=== PATIENT | female | born 1995 | race Caucasian/White ===

== ENCOUNTER 2021-09-20 17:23 | Emergency (ER) | payer OTHER, SELFPAY ==
--- NOTE | 2021-09-20 17:30 | ED.ABDPAIN ---
HPI - Abdominal Pain General Chief Complaint: Abdominal Pain Stated Complaint: ABD PAIN Time Seen by Provider: 09/20/21 17:30 Source: patient Mode of arrival: ambulatory Limitations: no limitations History of Present Illness HPI narrative: Ms. Sol is a 26-year-old female patient presenting to the clinic today with complaints of left lower abdominal pain that began approximately 30 minutes prior to arrival. She reports she has had a history of ovarian cyst and this feels as though that is what is happening. She says she is very tender to her left lower abdomen and over her pelvis. Reports possibility of being . She denies any fever or chills but does have nausea associated with her pain. She rates her pain 7 out of 10. States the pain is sharp in nature and does not radiate. Last bowel movement was this morning and it was normal for her. She denies any vaginal discharge or bleeding. Denies any urinary symptoms. She denies any bloating and is passing gas appropriately. Related Data Home Medications Medication Instructions Recorded Confirmed No Home Medications 09/20/21 09/20/21 Allergies Allergy/AdvReac Type Severity Reaction Status Date / Time No Known Allergies Allergy Verified 09/20/21 17:32 Review of Systems Review of Systems: Pertinent positives per HPI. Patient denies any fever, chills, rash, headache, visual changes, dizziness, cough, runny nose, sore throat, shortness of breath, chest pain, palpitations, vomiting, diarrhea, constipation, or any urinary issues. PMFSH Comments At the time of my signature, I reviewed and agree with the nursing past medical, surgical, social, and family history. There is no relevant family history pertinent to the patient complaint. Exam Narrative: General: Well-developed, well nourished, in moderate distress due to pain Head: Normocephalic, atraumatic Cardio: Regular rate and rhythm, s1 and s2 normal, no murmur appreciated. Resp: Clear to auscultation bilaterally, no rhonchi, rales, wheezing or rubs. Abdomen: Soft, pliable, bowel sounds present in all quadrants, exquisite tenderness to palpation over the left and right lower quadrants as well as over the left adnexa, no organomegly, no CVAT tenderness. Course Course Emergency Course: Portions of this record may have been created with voice recognition software. Level of Care: Express Care Visit Vital Signs Vital signs: Vital signs reviewed Transfer Transfered to: [place] Transportation: Other (Private car) Transfer rationale: Left lower quadrant pain rule out ovarian torsion or rupture. Accepting physician: Dr. Kristie Dia Transfer comments: Patient agreed to transfer. Report was called to Dr. Dia at [facility] MDM - Abdominal Pain MDM Narrative Medical decision making narrative: At the time of visit patient is sitting uncomfortably on the exam table. Rates her pain a 7 out of 10 currently. Has left lower abdominal pain with nausea. UA and urine test completed and both were negative. Patient did have 1+ ketones and high specific gravity with her urine. She is exquisitely tender over the in the left and right lower quadrant and over the left adnexa. Recommend evaluation in the emergency room and patient agreed to this. Called and discussed patient's case with Dr. Kristie Dia at [place] and she accepted the patient. Differential Diagnosis Differential diagnosis: Likely abdominal pain, acute appendicitis, calculus of kidney, constipation, diverticulitis, endometriosis, gastroenteritis, pancreatitis and small bowel obstruction Discharge Plan Discharge Clinical Impression: Abdominal pain, left lower quadrant Patient Disposition: Acute Care Hospital Condition: Stable Additional Instructions: You were evaluated by the provider in the Express care today, and it is recommended that you promptly go to the Emergency Room as your illness requires a higher level of care. Prescriptions
[2021-09-20 17:33] VITALS: BP 115/68; PULSE 85; RESP 16; TEMP 36.8; O2SAT 100
== END 2021-09-20 17:56 | disposition short-term general hospital (02) ==
PROVIDERS: Emergency Provider Nurse Practitioner Family
DX: R10.32 Left lower quadrant pain (principal)
CPT/HCPCS: 36415; 80053; 81003; 81025; 83690; 85025; 99212; G0463

== ENCOUNTER 2021-09-20 18:10 | Emergency (ER) | payer OTHER, SELFPAY ==
[2021-09-20 18:35] VITALS: BP 125/76; PULSE 91; RESP 16; TEMP 37.4; O2SAT 100
[2021-09-20 18:58] LABS: Basophils Percent Auto 0.3 % (0.2-1.2); Eosinophils Absolute Auto 0.1 K/mm3 (0-0.3); Eosinophils Percent Auto 1.4 % (0-4.4); Hematocrit 45.7 % (37.0-47.0); Hemoglobin 14.7 g/dL (12.0-15.0); Immature Granulocyte Absolute 0.02 K/mm3 (0.00-0.031); Immature Granulocyte Percent A 0.3 % (0-0.5); Lymphocytes Absolute Auto 2.02 K/mm3 (0.9-3.2); Lymphocytes Percent Auto 29.2 % (18.3-44.2); Mean Corpuscular HGB Conc 32.2 g/dl (32-36); Mean Corpuscular Hemoglobin 27.7 pg (26-34); Mean Corpuscular Volume 86.2 fl (80-100); Mean Platelet Volume 10.9 fl (7.4-10.4); Monocytes Absolute Auto 0.5 K/mm3 (0.1-0.6); Monocytes Percent Auto 7.7 % (2.6-8.5); Neutrophils Absolute Auto 4.2 K/mm3 (1.3-6.7); Neutrophils Percent Auto 61.1 % (45.5-73.1); Platelet Count Result 246 k/mm3 (150-375); Red Cell Distribution Width 13.4 % (11.5-14.5); White Blood Count 6.9 K/mm3 (4.5-10.0)
[2021-09-20 19:14] LABS: Alanine Aminotransferase 11 U/L (4-35); Alkaline Phosphatase 64 U/L (38-126); Anion Gap 9 mmol/L (8-16); Aspartate Amino Transferase 22 U/L (14-36); Bilirubin,Total 0.3 mg/dL (0.2-1.3); Blood Urea Nitrogen 13 mg/dL (7-17); Calcium 9.2 mg/dL (8.4-10.2); Carbon Dioxide 26 mmol/L (22-30); Chloride 105 mmol/L (98-107); Estimated CRCL calculation 92 ml/min; Estimated Glomerular Filt Rate > 60; Glucose 97 mg/dL (65-110); Lipase 84 U/L (23-300); Sodium 140 mmol/L (137-145)
--- NOTE | 2021-09-20 21:22 | PC.NURSE ---
pt called to go to room at this time x 3 but pt did not answer. pt not in triage at this time
== END 2021-09-20 23:03 | disposition left against medical advice (07) ==
LOC: ANHED 23:01
PROVIDERS: Emergency Provider Emergency Medicine
DX: R10.9 Unspecified abdominal pain (principal)
CPT/HCPCS: 36415; 80053; 83690; 85025; 99199

== ENCOUNTER 2022-02-28 01:34 | Day surgery (SDC) | payer OTHER, SELFPAY ==
[2022-02-20 13:39] VITALS: BMI 24.5
--- NOTE | 2022-02-21 15:47 | PC.NURSE ---
Report to the Outpatient Waiting Room, entrance under the green pavilion located off [facility], at time 0800 on date 02/28/22. OR Time: 1000. - You and your visitor will be asked to self-screen and do not enter if you have any COVID symptoms. - Only one visitor and NO children visitors are allowed at this time. - The patient visitor is requested to leave or wait in car when not with patient due to restrictions. - A mask is required within the hospital. Patients may have clear liquids (water, carbonated beverages, clear teas, apple juice) until 3 hours prior to surgery with a maximum of 20 ounces. - No food from midnight until time of surgery before 0700 am - Infants may have breast milk until 4 hours before surgery, infant formula 6 hours prior to surgery. - Children will be allowed to drink immediately following surgery. If applicable, please bring a bottle or sippy cup to assist with drinking. Juice, water, soda, and popsicles are readily available. For infants on formula, please bring formula the day of surgery. Pacifiers are allowed. Take the following medications with a SIP of water the morning of surgery: __n/a Medications to discontinue per physician Date to take last dose Please no make-up, nail persian, hairspray, perfume, deodorant, or body powder the day of surgery. No jewelry (including any body piercings) or valuables the day of surgery, leave them at home. Please take a shower or bath the night before, or the morning of, surgery with an antibacterial soap. Wear comfortable, loose fitting clothing. Children are encouraged to wear pajamas. - Jewelry must be removed prior to entering the operating room. Rings and piercings that are not removed may be cut off. - The hospital will not accept responsibility for valuables. - Please leave all valuables, including medications, at home the day of surgery. If you are going home after surgery, a licensed stock driver must drive you home. - NO public transportation without another adult. - We recommend that an adult stay with you for 24 hours following discharge. - We also recommend that you do not drive, make important decision, drink alcoholic beverages, or take any drugs that were not prescribed by your health care provider for at least 24 hours after your discharge time. For Pediatric surgeries, we recommend two adults accompany the child home (only one inside the building at this time). Follow any additional instructions given to you from your surgeon. If you or anyone in your household have experienced Covid symptoms in the past week, please notify your surgeon or the nurse liaison at the phone number below for possible testing. Telephone instructions given to _patient__and asked if any additional questions and then verbalized understanding. Patient advised to call surgeon office or pre surgery nurse liaison [phone] if any additional questions.
--- NOTE | 2022-02-27 13:23 | P.PNAN_ITS ---
Anes - Initial Pre Proc Eval Procedure: Operation Date: 02/28/22 10:00 Proposed Procedures p Bilateral Laparoscopic Salpingectomy, Laparoscopic Hydrotubation of Fallopian Tubes - Nasrin Reilly MD Date/Time: 02/27/22 13:23 Surgeon: Nasrin Reilly MD Pre Op Diagnosis: hydrosalpinx Patient Data Age: 26 Gender: F Height: 1.55 m Weight: 58.97 kg Allergies Allergy/AdvReac Type Severity Reaction Status Date / Time No Known Allergies Allergy Verified 02/28/22 08:21 Home Medications Medication Instructions Recorded Confirmed Type bupropion HCl 150 mg 24 hr tablet, 150 mg PO QAM 02/28/22 02/28/22 History extended release (Wellbutrin XL) buspirone 15 mg tablet 15 mg PO BID 02/28/22 02/28/22 History Patient hx anesthesia problems: none Family hx anesthesia problems: none Results Review: All pre-operative results and documents have been reviewed as part of the pre- operative evaluation. [facility] Past Medical History Medical History (Updated 02/27/22 @ 13:24 by Elias Bond MD) Abnormal uterine bleeding Anxiety Bipolar 1 disorder PTSD (post-traumatic stress disorder) Social History Social History Smoking packs per day: 1 Smoking cigarettes per day: 20.0 Years smoked: 10 Smoking pack-years: 10.00 Tobacco type: e-cigarettes/vaping Substance use type: former substance user Anes - Eval Final PreProcedure Day of Procedure 02/27/22 13:23 Patient weight: normal Heart: regular rate and rhythm Lungs: clear to auscultation and normal air movement Airway: Mallampati scale class II Neurological: alert and oriented Last oral intake: >/= 8 hours ASA classification: II Emergent: no Anesthetic plan: proceed Anesthesia type and monitoring: general ETT Results Review: All pre-operative results and documents have been reviewed as part of the pre- operative evaluation. Informed Consent: The patient's anesthetic plan and its attendant risks and benefits were discussed with the patient/family/POA. Questions were solicited and answers provided to the satisfaction of the patient/family/POA.
[2022-02-28] VITALS (7 sets, daily range): BP systolic 101–114; BP diastolic 60–73; PULSE 54–80; RESP 14–20; TEMP 36.3–36.5; O2SAT 99–100
--- NOTE | 2022-02-28 09:04 | WPDHPUPDATE1 ---
History and Physical Update Update Date/Time: 02/28/22 09:04 History and Physical has been reviewed, including an updated exam of the patient. There are NO changes in the patient's condition. Risks, benefits, and alternatives have been discussed and questions answered. Patient agrees to proceed with procedure.
[2022-02-28] MEDS: ACETAMINOPHEN 500 MG TABLET 1000 MG PO (09:14)
[2022-02-28] MEDS: LACTATED RINGERS 1,000 ML 30 ML IV CONT ×3 (09:15→12:36)
[2022-02-28] MEDS: KETOROLAC 15 MG/ML VIAL (*BKC) IV PUSH (09:17)
[2022-02-28] MEDS: METHYLENE BLUE 0.5% INJ 10 ML AMPULE 20 ML IRRIGATION (09:58)
--- NOTE | 2022-02-28 11:57 | P.OP_ITS ---
Procedure Note - Detailed Date of Procedure 02/28/22 Pre-op Diagnosis hydrosalpinx, pelvic pain Post-op Diagnosis Same (Pelvic adhesions) Procedure Performed Diagnostic laparoscopy, adhesiolysis, hydrotubation, left salpingectomy, left cy stectomy of the ovary Surgeon Nasrin Reilly MD Anesthesia General Indications Pelvic pain, hydrosalpinx Findings Large left hydrosalpinx, large 4 cm left ovarian cyst, vascularity and inflammation of the left ovary, thin adhesions throughout the pelvis and dense scarring around the fallopian tube on the left in the ovary. Description of Procedure The patient was taken to the operating room. She was prepped and draped in the dorsal lithotomy position after induction general anesthesia. A 5 mm incision was made with a scalpel on the abdominal skin in the left upper quadrant of the abdomen. A 5 mm trocar was inserted into the intra-abdominal cavity under direct visualization the scope. In the same fashion a 11 mm left lower quadrant trocar was inserted and a 11 mm infraumbilical trocar was inserted. Adhesiolysis was performed. A moderate amount of adhesions were found throughout the pelvis. There were thin adhesions were transected with LigaSure cautery that involved the colon, right tube and ovary, uterus, anterior pelvis. There were some adhesions also in the left adnexa appear. There was significant scar on the left ovary and left tube. This had to be dissected away to isolate the tube. 30 minutes of adhesiolysis was performed. Left ovarian cystectomy was performed. It was done with sharp and blunt dissection. Extensive cautery was required to make it hemostatic. Lotus uterine manipulator was placed in the intrauterine cavity. Hysteroscope was required to follow the intra cervical canal. Balloon was inflated. Dye was instilled under direct visualization of the laparoscoped. Tube was found to be patent. The placement required a speculum and tenaculum. The speculum tenaculum and a LOTUS manipulator were all removed at the end of the case. The pelvis was irrigated. The pneumoperitoneum was reduced. The trocars were removed. Skin was closed with subcuticular 4 micro. The patient's incisions were covered with Dermabond. She was taken recovery room in stable condition. Sponge lap and needle counts were correct x2. Complications No immediate complications Condition Stable Disposition Same day
[2022-02-28] MEDS: MEPERIDINE HCL INJ (*CRX) 50 MG/ML AMPUL 25 MG IV PUSH (12:19)
== END 2022-02-28 13:54 | disposition home or self-care (01) ==
PROVIDERS: Visit Provider Obstetrics & Gynecology
PROC: (CPT 49320; principal; 2022-02-28 10:00)
DX: N70.11 Chronic salpingitis (principal); N83.12 Corpus luteum cyst of left ovary; N73.6 Female pelvic peritoneal adhesions (postinfective); R10.2 Pelvic and perineal pain; F43.10 Post-traumatic stress disorder, unspecified; F31.9 Bipolar disorder, unspecified; F17.210 Nicotine dependence, cigarettes, uncomplicated; Z86.16 Personal history of COVID-19
CPT/HCPCS: 58350; 58662; 58661; 88302; 88305; A9270; J1100; J1885; J2175; J2250; J2405; J2704; J2710; J3010; J7030; J7120; Q9968

== ENCOUNTER 2022-10-28 05:35 | Emergency (ER) | payer OTHER, SELFPAY ==
[2022-10-28 05:40] VITALS: BP 109/63; PULSE 81; RESP 16; TEMP 36.5; O2SAT 99
[2022-10-28 05:56] VITALS: BP 112/68; PULSE 80; RESP 16; O2SAT 100
[2022-10-28 06:05] LABS: Basophils Percent Auto 0.2 % (0.2-1.2); Eosinophils Absolute Auto 0.1 K/mm3 (0-0.3); Eosinophils Percent Auto 0.9 % (0-4.4); Hematocrit 33.9 % (37.0-47.0); Immature Granulocyte Absolute 0.04 K/mm3 (0.00-0.031); Immature Granulocyte Percent A 0.4 % (0-0.5); Lymphocytes Absolute Auto 1.32 K/mm3 (0.9-3.2); Lymphocytes Percent Auto 14.7 % (18.3-44.2); Mean Corpuscular HGB Conc 32.4 g/dl (32-36); Mean Corpuscular Hemoglobin 25.9 pg (26-34); Mean Platelet Volume 10.5 fl (7.4-10.4); Monocytes Absolute Auto 0.7 K/mm3 (0.1-0.6); Monocytes Percent Auto 8.2 % (2.6-8.5); Neutrophils Absolute Auto 6.8 K/mm3 (1.3-6.7); Neutrophils Percent Auto 75.6 % (45.5-73.1); Platelet Count Result 186 k/mm3 (150-375); Red Blood Count 4.24 M/mm3 (4.2-5.4); Red Cell Distribution Width 13.7 % (11.5-14.5)
[2022-10-28 06:15] LABS: Alanine Aminotransferase 18 U/L (6-35); Albumin Level 3.8 g/dL (3.5-5.1); Alkaline Phosphatase 70 U/L (38-126); Anion Gap 6 mmol/L (8-16); Aspartate Amino Transferase 23 U/L (14-36); Bilirubin,Total 0.4 mg/dL (0.2-1.3); Blood Urea Nitrogen 9 mg/dL (7-17); Calcium 8.1 mg/dL (8.4-10.2); Carbon Dioxide 25 mmol/L (22-30); Chloride 105 mmol/L (98-107); Estimated Glomerular Filt Rate > 60; Glucose 89 mg/dL (65-110); Lipase 141 U/L (23-300); Potassium 3.6 mmol/L (3.4-5.0); Sodium 136 mmol/L (137-145)
[2022-10-28 06:25] LABS: Appearance Urine Clear (Clear); Bacteria Urine None Seen /hpf; Bilirubin Urine Negative (Negative); Blood Urine Negative (Negative); Color Urine Yellow (Yellow); Glucose Urine UA Negative (Negative); Ketones Urine Negative (Negative); Leukocyte Esterase Ur Trace LEU/UL (Negative); Nitrate Urine Negative (Negative); Protein Urine 1+ mg/dL (Negative); RBC Urine 0-2 /hpf (0-2); Squamous Epithelial Cell Urine Few /hpf (Few); WBC Urine 0-5 /hpf
[2022-10-28 06:35] LABS: Add Urine Microscopic? YES
[2022-10-28 07:14] VITALS: BP 106/63; PULSE 77; RESP 18; O2SAT 100
--- NOTE | 2022-10-28 07:14 | PC.NURSE ---
assumed care of pt. pt resting on stretcher, c/o nausea and discomfort at this time. denies pain. updated of status, no questions at this time
[2022-10-28] MEDS: SODIUM CHLORIDE 0.9% IV 1,000 ML 999 ML IV CONT (08:05)
[2022-10-28] MEDS: ONDANSETRON INJ 4 MG/2 ML VIAL IV PUSH (08:05)
--- NOTE | 2022-10-28 09:10 | ED.GENADULT ---
HPI - General Adult General Chief complaint: Nausea/Vomiting/Diarrhea Stated complaint: nausea, vomiting, diarrhea 30 weeks preg Time Seen by Provider: 10/28/22 06:20 History of Present Illness HPI narrative: 27-year-old female that is 30 weeks and follows up with Dr. Reilly presented the emergency department for evaluation of nausea vomiting diarrhea. Patient states she did walk a lot yesterday and was fatigued. Patient states last night she had onset of symptoms but was unable to get them controlled given with p.o. Zofran. Patient states that she does feel active movement denies any lower abdominal cramping and denies any leaking of fluid or vaginal bleeding or vaginal discharge. Related Data Home Medications Medication Instructions Recorded Confirmed bupropion HCl 150 mg 24 hr tablet, 150 mg PO QAM 02/28/22 02/28/22 extended release (Wellbutrin XL) buspirone 15 mg tablet 15 mg PO BID 02/28/22 02/28/22 Allergies Allergy/AdvReac Type Severity Reaction Status Date / Time No Known Allergies Allergy Verified 10/28/22 05:36 Review of Systems Review of Systems: All systems reviewed & are unremarkable except as noted in HPI and below PMFSH Past Medical History Medical History (Updated 10/28/22 @ 09:13 by Eric Torres MD) Abnormal uterine bleeding Anxiety Bipolar 1 disorder PTSD (post-traumatic stress disorder) Social History Social History Smoking packs per day: 1 Smoking cigarettes per day: 20.0 Years smoked: 10 Smoking pack-years: 10.00 Tobacco type: e-cigarettes/vaping Substance use type: former substance user Exam Narrative: APPEARANCE: Well appearing, no pain, no distress, well-nourished. HEAD: normocephalic, atraumatic. EYES: PERRLA/EOMI, conjunctivae clear. NOSE: Normal no drainage NECK: Supple. No adenopathy, no masses. RESPIRATORY: Airway patent, respirations nonlabored. Clear to auscultation bilaterally, no rales, rhonchi, wheezing. CARDIOVASCULAR: Regular rate and rhythm without murmurs rubs or gallops. ABDOMINAL: Soft, nontender, nondistended, normal bowel sounds MUSCULOSKELETAL: Moves all extremities. Strength/ROM intact, No edema, No calf tenderness. NEURO: Alert. Cranial nerves II through XII intact. SKIN: Warm, dry. Normal Color Nursing documented heart tones. Course Course Emergency Course: 27-year-old female presented the emergency department for evaluation of nausea vomiting and diarrhea. Patient states that her nausea and vomiting was resolved with IV Zofran and a liter of normal saline. Patient denies any complaints at this time. Patient is afebrile with no leukocytosis. Patient's CMP is within normal limits. Patient's UA shows no evidence of urinary tract infection. Patient did have trach leukoesterase and a urine culture is pending. heart monitoring showed active heart sounds. Mother states that she can feel the baby moving. Patient was encouraged of close follow-up with her AREA ATTENDANT. All question concerns were addressed. Patient was well-appearing at time of discharge. Vital Signs Vital signs: Vital Signs Temperature 97.7 F 10/28/22 05:40 Pulse Rate 81 10/28/22 05:40 Respiratory Rate 16 10/28/22 05:40 Blood Pressure 109/63 10/28/22 05:40 Pulse Oximetry 99 10/28/22 05:40 Oxygen Delivery Room Air 10/28/22 05:40 Temperature 97.7 F 10/28/22 05:40 Pulse Rate 80 10/28/22 09:59 Respiratory Rate 16 10/28/22 09:59 Blood Pressure 110/52 L 10/28/22 09:59 Pulse Oximetry 97 10/28/22 09:59 Oxygen Delivery Room Air 10/28/22 05:40 Medical Decision Making Vital Signs Vital Signs: Vital Signs Temperature 97.7 F 10/28/22 05:40 Pulse Rate 81 10/28/22 05:40 Respiratory Rate 16 10/28/22 05:40 Blood Pressure 109/63 10/28/22 05:40 Pulse Oximetry 99 10/28/22 05:40 Oxygen Delivery Room Air 10/28/22 05:40
[2022-10-28 09:59] VITALS: BP 110/52; PULSE 80; RESP 16; O2SAT 97
== END 2022-10-28 10:01 | disposition home or self-care (01) ==
PROVIDERS: Emergency Medicine; Emergency Provider Emergency Medicine; PCP Obstetrics & Gynecology
DX: R11.2 Nausea with vomiting, unspecified (principal); R19.7 Diarrhea, unspecified; F17.290 Nicotine dependence, other tobacco product, uncomplicated; F41.9 Anxiety disorder, unspecified; F31.9 Bipolar disorder, unspecified
CPT/HCPCS: 36415; 80053; 81001; 83690; 85025; 96361; 96374; 99284; J2405; J7030

== ENCOUNTER 2022-12-14 13:00 | Observation (INO) | payer OTHER, SELFPAY ==
[2022-12-14 13:23] VITALS: BP 108/64; PULSE 98
[2022-12-14 14:37] VITALS: BMI 33.3
--- NOTE | 2022-12-14 14:37 | LDADM ---
This patient, Sima Sol, was admitted to Labor/Delivery/Recovery 106 on 12/14/22 at 13:00. Plans for labor, pain management and were discussed with patient. Patient/family oriented to hospital policies and general routines including ID bracelet, bed and alarms, visiting hours, pain management, procedures, bathroom and other care routines, personal items, smoking policy, room service/diet and guest tray routines, security routines, and visiting hours. Patient/Family are encouraged to report perceived risks to care and to ask questions if they do not understand what they are told or what they should do. See OBIX for further documentation.
--- NOTE | 2022-12-14 14:51 | PC.NURSE ---
Called Dr. Reilly at 1450. Reported maternal/ status and cervical exams. Verbal orders given for discharge.
--- NOTE | 2023-01-06 20:07 | PM.OBTRLD ---
OB - Triage/Final Diagnosis Visit Information Comments/Additional reasons for admission: I have assessed the risk for this patient, Sima Sol, and determined that she would benefit from observation care. Final Diagnosis (1) False labor: Code(s): O47.9 - False labor, unspecified Status: Acute
== END 2022-12-14 15:07 | disposition home or self-care (01) ==
PROVIDERS: Admitting Provider Obstetrics & Gynecology; Visit Provider Obstetrics & Gynecology
DX: O47.1 False labor at or after 37 completed weeks of gestation (principal); Z3A.37 37 weeks gestation of pregnancy
CPT/HCPCS: G0378; G0379

== ENCOUNTER 2022-12-21 23:05 | Inpatient (IN) | payer OTHER, SELFPAY ==
[2022-12-21 23:13] VITALS: BP 118/69; PULSE 93
[2022-12-21 23:40] VITALS: BMI 32.9
--- NOTE | 2022-12-21 23:40 | LDADM ---
This patient, Sima Sol, was admitted to Labor/Delivery/Recovery 106 on 12/21/22 at 23:05. Plans for labor, pain management and were discussed with patient. Patient/family oriented to hospital policies and general routines including ID bracelet, bed and alarms, visiting hours, pain management, procedures, bathroom and other care routines, personal items, smoking policy, room service/diet and guest tray routines, security routines, and visiting hours. Patient/Family are encouraged to report perceived risks to care and to ask questions if they do not understand what they are told or what they should do. See OBIX for further documentation.
[2022-12-21 23:41] LABS: Basophils Percent Auto 0.4 % (0.2-1.2); Eosinophils Absolute Auto 0.1 K/mm3 (0-0.3); Eosinophils Percent Auto 1.1 % (0-4.4); Hematocrit 36.2 % (37.0-47.0); Hemoglobin 10.9 g/dL (12.0-15.0); Immature Granulocyte Absolute 0.03 K/mm3 (0.00-0.031); Immature Granulocyte Percent A 0.3 % (0-0.5); Lymphocytes Absolute Auto 2.24 K/mm3 (0.9-3.2); Lymphocytes Percent Auto 24.2 % (18.3-44.2); Mean Corpuscular HGB Conc 30.1 g/dl (32-36); Mean Corpuscular Hemoglobin 22.4 pg (26-34); Mean Corpuscular Volume 74.5 fl (80-100); Mean Platelet Volume 11.3 fl (7.4-10.4); Monocytes Absolute Auto 0.8 K/mm3 (0.1-0.6); Monocytes Percent Auto 8.8 % (2.6-8.5); Neutrophils Percent Auto 65.2 % (45.5-73.1); Platelet Count Result 198 k/mm3 (150-375); Red Blood Count 4.86 M/mm3 (4.2-5.4); Red Cell Distribution Width 15.9 % (11.5-14.5); White Blood Count 9.3 K/mm3 (4.5-10.0)
[2022-12-21] MEDS: LACTATED RINGERS 1,000 ML 125 ML IV CONT (23:49)
--- NOTE | 2022-12-21 23:56 | PC.NURSE ---
pt states she is a recovering drug addict and has been clean for 2 years in December. States LARRY is also a recovering drug addict. States they live together in an apartment. States she does not currently have a job but is about to start a new job.
[2022-12-22] VITALS (191 sets, daily range): BP systolic 78–147; BP diastolic 38–100; PULSE 25–206; RESP 16; TEMP 36.6–37.7; O2SAT 76–100
--- NOTE | 2022-12-22 00:03 | WPDANESEPPF ---
Anes - Initial Pre Proc Eval Procedure: Labor Epidural Date/Time: 12/22/22 00:03 Surgeon: Nasrin Reilly MD Pre Op Diagnosis: Labor Pain Pre Op Diagnosis: ctx Patient Data Age: 27 Gender: F Height: 1.55 m Weight: 79 kg Last Vital Signs Pulse 93 12/21/22 23:13 BP 118/69 12/21/22 23:13 O2 Del Method Room Air 12/21/22 23:40 Allergies Allergy/AdvReac Type Severity Reaction Status Date / Time No Known Allergies Allergy Verified 10/28/22 05:36 Home Medications Medication Instructions Recorded Confirmed Type sertraline 100 mg tablet (Zoloft) 100 mg PO DAILY 12/21/22 12/21/22 History valacyclovir 500 mg tablet 500 mg PO DAILY 12/21/22 12/21/22 History (Valtrex) Laboratory Tests 12/21/22 12/21/22 23:35 23:54 WBC 9.3 K/mm3 (4.5-10.0) RBC 4.86 M/mm3 (4.2-5.4) Hgb 10.9 L g/dL (12.0-15.0) Hct 36.2 L % (37.0-47.0) MCV 74.5 L fl (80-100) MCH 22.4 L pg (26-34) MCHC 30.1 L g/dl (32-36) RDW 15.9 H % (11.5-14.5) Plt Count 198 k/mm3 (150-375) MPV 11.3 H fl (7.4-10.4) Immature Gran % (Auto) 0.3 % (0-0.5) Neut % (Auto) 65.2 % (45.5-73.1) Lymph % (Auto) 24.2 % (18.3-44.2) Union % (Auto) 8.8 H % (2.6-8.5) Eos % (Auto) 1.1 % (0-4.4) Baso % (Auto) 0.4 % (0.2-1.2) Lymph # (Auto) 2.24 K/mm3 (0.9-3.2) Union # (Auto) 0.8 H K/mm3 (0.1-0.6) Eos # (Auto) 0.1 K/mm3 (0-0.3) Baso # (Auto) 0.0 K/mm3 (0.0-0.1) Abs Immat Gran (auto) 0.03 K/mm3 (0.00-0.031) Absolute Neuts (auto) 6.0 K/mm3 (1.3-6.7) Absolute Nucleated RBC 0.0 K/mm3 (0.0-0.012) Nucleated RBC % 0.0 % (0.0-0.2) Urine Opiates Screen Pending Urine Methadone Screen Pending Ur Barbiturates Screen Pending Ur Phencyclidine Scrn Pending Ur Amphetamine Screen Pending U Benzodiazepines Scrn Pending Urine Cocaine Screen Pending U Cannabinoids Screen Pending RPR Pending Patient hx anesthesia problems: none Family hx anesthesia problems: none Results Review: All pre-operative results and documents have been reviewed as part of the pre-operative evaluation. [facility] Past Medical History Medical History Abnormal uterine bleeding Anxiety Bipolar 1 disorder PTSD (post-traumatic stress disorder) Social History Social History Smoking packs per day: 1 Smoking cigarettes per day: 20.0 Years smoked: 10 Smoking pack-years: 10.00 Smoking status: Current every day smoker Tobacco type: e-cigarettes/vaping Second hand tobacco smoke exposure: Yes Substance use: former Substance use type: former substance user Lack of Transportation: No Lack of Food: Never True Current Housing: I Have Housing Concerned About Future Housing: No Difficulty Paying Gas/Electric Bills: No Difficulty Paying for Meds: No Currently Unemployed: YES Education: High School Diploma/GED Difficulty w/ Childcare or Family Care: No Spiritual care concerns: No Anes - Eval Final PreProcedure Day of Procedure 12/22/22 00:03 Patient weight: normal Heart: regular rate and rhythm ASA classification: III Anesthetic plan: proceed Anesthesia type and monitoring: regional epidural and standard monitoring Results Review: All pre-operative results and documents have been reviewed as part of the pre-operative evaluation. Informed Consent: The patient's anesthetic plan and its attendant risks and benefits were discussed with the patient/family/POA. Questions were solicited and answers provided to the satisfaction of the patient/family/POA.
[2022-12-22] MEDS: ONDANSETRON INJ 4 MG/2 ML VIAL IV PUSH ×2 (00:25→16:18)
--- NOTE | 2022-12-22 00:26 | WPDANESEPN ---
Anes - Epidural Procedure Note Date/Time: 12/22/22 00:26 Consent: I have discussed with the patient/family/POA, the placement of an epidural catheter and the use of epidural narcotic/local anesthetic for labor analgesia and/or postoperative pain management, including associated potential risks, benefits, complications and side effects. I have discussed alternative methods of labor analgesia and/or postoperative pain management. The patient/family/POA, understand(s) and wish(es) to proceed with epidural narcotic/local anesthetic for labor analgesia and/or postoperative pain management. Time-Out: A pre-procedural Time-Out was completed immediately before starting the procedure and confirmed: Patient Identification, Site, Procedure, Patient Position and the Availability of Requisite Equipment. Clinical Indications: Labor Pain Epidural Insertion Note Patient position: sitting Skin prep: chlorhexidine and sterile drape Needle: 18g Tuohy-Schliff Catheter: 20g Unstyleted Technique: Loss of resistance. Level of insertion: L3/4 Catheter skin tera (cm): 11 Length in epidural space (cm): 6 Skin anesthesia: lidocaine 1% Test dose: 1.5% Lidocaine with 1:[id number] Epi, negative for subarachnoid Inj and negative for intravascular Inj Time of test dose: 00:16 Observations: tolerated well Complications: none
[2022-12-22 00:40] LABS: Amphetamine Screen Urine Negative (Negative); Barbiturate Screen Urine Negative (Negative); Benzodiazepines Screen Urine Negative (Negative); Cannabinoid Screen Urine Negative (Negative); Cocaine Screen Urine Negative (Negative); Methadone Screen Urine Negative (Negative); Opiate Screen Urine Negative (Negative); Phencyclidine Screen Urine Negative (Negative)
[2022-12-22] MEDS: LACTATED RINGERS 1,000 ML 125 ML IV CONT ×3 (00:47→11:38)
[2022-12-22] MEDS: PHENYLEPHRINE 1,000 MCG/10 ML SYRINGE 100 MCG IV PUSH (05:47)
[2022-12-22] MEDS: OXYTOCIN 30 UNITS/NS 500 ML 30 UNITS/500 ML BAG IV CONT (08:50)
--- NOTE | 2022-12-22 11:24 | WPDOBADMIT ---
Obstetrics - Admit Note Admission Note: record reviewed. No pertinent additions to the history and/or any subsequent changes in the physical findings that are not consistent with the expected course of the were found. Pt admitted in labor, SVE 8//-2 AROM forebag small amount of clear, odorless, fluid, anticipate vaginal delivery. Additions to the history and/or subsequent changes in the physical findings follow. None.
--- NOTE | 2022-12-22 16:12 | WPDHPUPDATE1 ---
History and Physical Update Update Date/Time: 12/22/22 16:12 27-year-old female 1 who presented for labor. Refer to record. Reassuring heart tones, 4 cm on admission History and Physical has been reviewed, including an updated exam of the patient. There are NO changes in the patient's condition. Risks, benefits, and alternatives have been discussed and questions answered. Patient agrees to proceed with procedure.
--- NOTE | 2022-12-22 16:14 | PM.OBPRVD ---
OB - Delivery Note Procedure Delivery date: 12/22/22 Procedure: Delivery augmentation: Pitocin Delivery monitor: External FHT and External Uterine Route of delivery: Episiotomy description: None Laceration Description: Vaginal Delivery repair: vicryl Quantitative Blood Loss (ml): 150 Anesthesia type: Epidural Disposition: Floor Complications: none [place] Baby Date of : 12/22/22 Time of : 15:55 Weeks of gestation at delivery: 38 Weight (pounds): 7 Weight (ounces): 1 Placenta delivery description: Spontaneous score one minute: 8 score five minutes: 9
[2022-12-22] MEDS: OXYTOCIN 30 UNITS/NS 500 ML 30 UNITS/500 ML BAG 125 UNITS IV CONT (16:34)
[2022-12-22] MEDS: ACETAMINOPHEN 325 MG TABLET 650 MG PO (17:04)
[2022-12-22] MEDS: IBUPROFEN 600 MG TABLET PO (18:45)
[2022-12-22] MEDS: BENZOCAINE 20% AER SPR (*SP) 56 GM CAN 1 SPRAY TOPICAL (19:00)
[2022-12-22] MEDS: WITCH HAZEL 40 PADS 1 PAD TOPICAL (19:00)
[2022-12-23 00:30] VITALS: BP 102/57; PULSE 81; RESP 16; TEMP 36.6; O2SAT 100
--- NOTE | 2022-12-23 01:11 | OBPPTRN ---
12/22/22 at 1908 Patient transferred to post room #291. Support person present. Patient oriented to unit, room, information board, rooming in, admission packet and security measures. Patient verbalizes understanding.
[2022-12-23 05:57] LABS: Hematocrit 28.7 % (37.0-47.0); Hemoglobin 8.7 g/dL (12.0-15.0)
[2022-12-23] MEDS: ACETAMINOPHEN 325 MG TABLET 650 MG PO ×2 (07:23→16:59)
[2022-12-23] MEDS: IBUPROFEN 600 MG TABLET PO ×2 (07:24→16:58)
[2022-12-23] MEDS: POLYSACCHARIDE IRON COMPLEX 150 MG CAPSULE PO ×2 (07:24→16:58)
[2022-12-23] MEDS: DOCUSATE SODIUM 100 MG CAPSULE PO ×2 (07:24→16:58)
[2022-12-23] MEDS: MULTIVIT/MIN/PREN/FOL AC/IRON TABLET 1 TAB PO (07:24)
[2022-12-23] MEDS: SERTRALINE HCL 50 MG TABLET 100 MG PO (07:25)
[2022-12-23 07:45] VITALS: BP 90/56; PULSE 83; RESP 18; TEMP 37.2
--- NOTE | 2022-12-23 08:03 | WPDANLDPN2 ---
Anes-Prog Note L&D Date/Time: 12/23/22 08:03 Comfortable throughout: labor (pt states she felt epidural wore off ) and delivery Neuraxial method: epidural Epidural/Spinal procedure site: tender Neuro status: Neuro function grossly intact. Cardiovascular status: normal Respiratory status: normal Airway patency: baseline Mental status: baseline Post-Op hydration status: normal Vital Signs: Last Vital Signs Temp 98 F 12/23/22 00:30 Pulse 81 12/23/22 00:30 Resp 16 12/23/22 00:30 BP 102/57 L 12/23/22 00:30 Pulse Ox 100 12/23/22 00:30 O2 Del Method Room Air 12/21/22 23:40 Pain score (VAS): 0 I/O: Intake & Output 12/22/22 12/23/22 12/23/22 23:59 07:59 15:59 Intake Total 1300 Balance 1300 Post-procedural complaints: none Patient feedback: Patient somewhat satisfied with anesthetic care. pt reportedly experienced difficulty with descent which required pt to position to hands and knees. during this time pt had suboptimal pain coverage & felt her epidural wore off . discussed with pt bolus had been offered but informed by RN not necessary. pt delivered a relatively short time later
--- NOTE | 2022-12-23 08:08 | P.PNOB_ITS ---
OB - PN: Subj Subjective Date/time seen: 12/23/22 08:08 s/p vaginal delivery day 1 no complaints baby doing well OB - PN: Obj Data Labs 12/23/22 05:47 Labs: Laboratory Results - last 24 hr 12/23/22 05:47 Hgb 8.7 L Hct 28.7 L OB - PN A/P Plan day: 1 Plan: routine care Time Spent With Patient Time: Total time spent is greater than 50% in coordination of care (as documented) at patient's floor/unit and/or counseling patient: Review of Systems Review of Systems: All systems reviewed & are unremarkable except as noted in HPI and below Exam Const: General: cooperative, healthy appearing, comfortable and no acute distress Chest: Chest palpation & inspection: normal inspection of the chest Resp: Effort & Inspection: normal respiratory effort and able to speak in c omplete sentences Cardio: Rate: regular rate Rhythm: regular rhythm GI: Other: soft : Other: deferred Skin: General skin exam: normal color and no rashes or lesions noted Neuro: General: patient oriented x3 Extrem: General: normal to inspection and full ROM Psych: Appearance: grossly normal
[2022-12-23] MEDS: valACYclovir HCL 500 MG TABLET PO (19:22)
[2022-12-23 20:30] VITALS: BP 100/64; PULSE 64; RESP 16; TEMP 36.8; O2SAT 100
[2022-12-23] MEDS: DIBUCAINE 1% OINTMENT 30 GM TUBE 1 APPLIC TOPICAL (21:00)
[2022-12-24 08:05] LABS: Rapid Plasma Reagin Non-Reactive (NonReactive)
[2022-12-24 08:10] VITALS: BP 99/61; PULSE 61; RESP 16; TEMP 36.6; O2SAT 100
[2022-12-24] MEDS: POLYSACCHARIDE IRON COMPLEX 150 MG CAPSULE PO (08:19)
[2022-12-24] MEDS: MULTIVIT/MIN/PREN/FOL AC/IRON TABLET 1 TAB PO (08:20)
[2022-12-24] MEDS: SERTRALINE HCL 50 MG TABLET 100 MG PO (08:20)
[2022-12-24] MEDS: IBUPROFEN 600 MG TABLET PO (08:21)
[2022-12-24] MEDS: DOCUSATE SODIUM 100 MG CAPSULE PO (08:31)
--- NOTE | 2022-12-24 08:50 | PM.OBPNVD ---
OB - PN: Subj Subjective Date/time seen: 12/24/22 08:50 Patient comments: no complaints, pain well controlled and tolerating diet OB - PN: Obj Data Labs 12/23/22 05:47 Labs: Laboratory Results - last 24 hr 12/21/22 23:35 RPR Non-reactive OB - PN A/P Plan day: 2 Plan: routine care and discharge home Time Spent With Patient Time: Total time spent is greater than 50% in coordination of care (as documented) at patient's floor/unit and/or counseling patient: Exam Const: General: comfortable and no acute distress Resp: Effort & Inspection: normal respiratory effort Auscultation: no rales, no rhonchi and no wheezes Cardio: Rate: regular rate Heart sounds: no click, no murmurs and no rubs GI: GI Palp: Yes Soft to palpation and No Tenderness to palpation present (GI) Auscultation: normal bowel sounds Extrem: General: normal to inspection, no pedal edema and no calf tenderness
--- NOTE | 2022-12-24 08:50 | PM.OBDSVD ---
DS: Admitting Diagnosis Discharge Date 12/24/22 Admitting Diagnosis term OB - DS: Summary OB Procedures : None OB Procedures Intrapartum: Spontaneous Vag Delivery OB Procedures: : None Time Spent with Patient Time attestation: Total time spent providing and/or coordinating discharge services: DS: Data Data Completed and Pending Labs on day of discharge: Labs from last 24 hours 12/21/22 23:35 RPR Non-reactive Discharge Plan Discharge Discharging Clinician: Nasrin Reilly Patient Disposition: Home, Self-Care Activity: pelvic rest Diet: regular Patient Instructions: Antibiotic Form Stand Alone Forms: General Discharge Information Follow-up/Referrals: Nasrin Reilly MD [Physician] - Discharge Medications: Continued sertraline [Zoloft] 100 mg Tablet 100 mg PO DAILY valacyclovir [Valtrex] 500 mg Tablet 500 mg PO DAILY Date of admission: 12/21/22 23:05 Primary Care Provider: UNKNOWN,DOCTOR Admitting Provider: Nasrin Reilly Attending physician on admission: Nasrin Reilly Condition: Stable
--- NOTE | 2022-12-24 09:28 | PC.NURSE ---
Report received this morning by Primary RN that mother decided to bottle feed only.
--- NOTE | 2022-12-24 10:56 | PC.NURSE ---
Patient instructed on viewing the discharge video Mother & Baby Care, The First Two Weeks . Patient was given the opportunity and encouraged to ask questions. Patient verbalized understanding of information shared and has been given the mother/baby guide for home reference.
[2022-12-26 11:27] VITALS: BP 107/69; PULSE 68; RESP 18; TEMP 36.9; O2SAT 100
== END 2022-12-24 12:07 | disposition home or self-care (01) | DRG 560 ==
LOC: ANHLDR 12-22 19:08 → ANHOB2 12-22 20:20
PROVIDERS: Advanced Practice Midwife; Admitting Provider Obstetrics & Gynecology; Visit Provider Obstetrics & Gynecology
DX: O98.32 Other infections with a predominantly sexual mode of transmission complicating childbirth (principal); A60.09 Herpesviral infection of other urogenital tract; O71.4 Obstetric high vaginal laceration alone; O99.344 Other mental disorders complicating childbirth; F31.9 Bipolar disorder, unspecified; Z3A.38 38 weeks gestation of pregnancy; Z37.0 Single live birth; F43.10 Post-traumatic stress disorder, unspecified; F41.9 Anxiety disorder, unspecified
CPT/HCPCS: 36415; 80307; 85014; 85018; 85025; 86592; 86850; 86900; 86901; A9270; J2370; J2405; J2590; J2795; J7120

== ENCOUNTER 2025-03-04 01:07 | Emergency (ER) | payer BC, SELFPAY ==
--- NOTE | ~2025-03-04 | XR_ITS ---
EXAM/PROCEDURE: XR chest 2V - 03/04/2025 2:40 CDT HISTORY: 29 years old Female with cough, poss pna TECHNIQUE: Two view(s) of the chest. COMPARISON: None available. FINDINGS: LUNGS/ PLEURA: No focal consolidation. No appreciable pneumothorax or large pleural effusion. HEART/ MEDIASTINUM: Heart appears normal in size. BONES: No acute osseous abnormality. OTHER: Visualized upper abdomen is unremarkable. IMPRESSION: No acute process. Reviewed, dictated and finalized at location N. IMPRESSION: No acute process.
[2025-03-04 01:10] VITALS: BP 121/73; PULSE 108; RESP 20; TEMP 39; O2SAT 97
[2025-03-04 01:44] VITALS: TEMP 38.1
--- NOTE | 2025-03-04 02:30 | ED.URI ---
HPI - URI/Sore Throat General Chief Complaint: Upper Respiratory Infection Stated Complaint: cold symptoms Time Seen by Provider: 03/04/25 02:19 History of Present Illness HPI Narrative: This is a 21-year-old female with history of depression who presents to ED for flu-like symptoms. Patient states for the past 2 days, she has been having a sore throat, cough productive green / yellow sputum. She has had a fever as high as 102 at home. She took ibuprofen about 2 hours prior to arrival. Denies chest pain, shortness of breath. She also notes that she was recently treated for a dental infection to a tooth she had a previous crown on. She reports the pain is worse to that at this time as well. Related Data Home Medications ?Medication ?Instructions ?Recorded ?Confirmed ?Last Taken ?Type sertraline 100 mg tablet (Zoloft) 100 mg PO DAILY 12/21/22 12/21/22 12/21/22 History valacyclovir 500 mg tablet 500 mg PO DAILY 12/21/22 12/21/22 12/21/22 History (Valtrex) Allergies Allergy/AdvReac Type Severity Reaction Status Date / Time No Known Allergies Allergy Verified 03/04/25 01:12 Review of Systems Review of Systems: Gen.: as per HPI Eyes: Denies eye pain or visual change ENT: Denies congestion Respiratory: As per HPI CV: Denies chest pain or palpitations GI: Denies abdominal pain nausea, emesis or diarrhea denies burning, urgency, frequency or hematuria Musculoskeletal: Denies back pain or muscle pain Neuro: Denies numbness, tingling, weakness or focal weakness Skin: Denies rash Except as documented, all other systems reviewed and negative [facility] Past Medical History Medical History Abnormal uterine bleeding Anxiety Bipolar 1 disorder PTSD (post-traumatic stress disorder) Social History Social History Smoking packs per day: 1 Smoking cigarettes per day: 20.0 Years smoked: 10 Smoking pack-years: 10.00 Smoking status: Current every day smoker Tobacco type: e-cigarettes/vaping Second hand tobacco smoke exposure: Yes Substance use: former Substance use type: former substance user Lack of Transportation: No Lack of Food: Never True Current Housing: I Have Housing Concerned About Future Housing: No Difficulty Paying Gas/Electric Bills: No Difficulty Paying for Meds: No Currently Unemployed: YES Education: High School Diploma/GED Difficulty w/ Childcare or Family Care: No Spiritual care concerns: No Exam Narrative: APPEARANCE: No acute distress, nontoxic, resting in bed EYES: EOMI HEENT: Normocephalic, atraumatic, OMM. Significant dental neyda to tooth 28 without surrounding fluctuance. Bilateral TMs clear. RESPIRATORY: No respiratory distress Clear to auscultation bilaterally with no rhonchi wheezing or rales. CARDIOVASCULAR: Regular rate and rhythm without murmurs rubs or gallops. ABDOMINAL: Soft, nontender, nondistended, no rebound or guarding MUSCULOSKELETAl: Moves all extremities. No clubbing, cyanosis or edema. NEURO: Awake and alert. Following commands, speech normal, no focal deficits SKIN:: Warm, dry. No rashes lesions or abrasions PSYCHIATRIC: Normal affect/mood, Course Vital Signs Vital signs: Vital Signs Temperature 102.2 F H 03/04/25 01:10 Pulse Rate 108 H 03/04/25 01:10 Respiratory Rate 20 03/04/25 01:10 Blood Pressure 121/73 03/04/25 01:10 Pulse Oximetry 97 03/04/25 01:10 Oxygen Delivery Room Air 03/04/25 01:10 Temperature 100.5 F H 03/04/25 01:44 Pulse Rate 108 H 03/04/25 01:10 Respiratory Rate 20 03/04/25 01:10 Blood Pressure 121/73 03/04/25 01:10 Pulse Oximetry 97 03/04/25 01:10 Oxygen Delivery Room Air 03/04/25 01:10 MDM - URI/Sore Throat MDM Narrative Medical decision making narrative: 29-year-old female presents to the ED for Flu-like symptoms. On initial evaluation, patient was rather comfortable appearing, febrile to 102.2, hemodynamics supple. She did have evidence of a pulpitis. Her lungs were clear. There is no oropharyngeal erythema or exudates. COVID/flu/ RSV negative. Chest x-ray showed no acute process. Patient will be given clindamycin as she just completed a course of Augmentin a week ago for her dental infection. She was also advised to take Tylenol and ibuprofen for her pain. She was advised to seek care from a dentist for possible tooth extraction if needed. Patient was agreeable to this plan. Given strict return precautions. Differential Diagnosis Differential diagnosis: Likely upper respiratory infection, viral infection, bronchitis and influenza Medical Records Attestation: I reviewed the patient's medical records. Lab Data Attestation: I reviewed the patient's lab results. Labs: Lab Results 03/04/25 Range/Units 01:52 Influenza A (RT-PCR) Negative (Negative) Influenza B (RT-PCR) Negative (Negative) RSV (RT-PCR) Negative (Negative) SARS-CoV-2 RNA (RT-PCR) Negative (Negative) Discharge Plan Discharge Clinical Impression: Acute pulpitis, Acute viral syndrome Patient Disposition: Home Condition: Stable Instructions: Antibiotic Form, Viral Syndrome (ED), Toothache (ED) Additional Instructions: take clindamycin as prescribed. Take Tylenol and ibuprofen for pain and fever. Follow-up with dentist as discussed. Return to the ED for any new or worsening symptoms. For pain, discomfort or temperature greater than or equal to 100.8 ?F please alternate the following 2 medications as needed. First medication- acetaminophen/Tylenol- 1000mg every 6-8 hours as needed for above indications. Second medication- ibuprofen/Motrin-600mg every 6-8 hours as needed for above indication. Patient Language: Telugu Prescriptions: New clindamycin HCl [Cleocin HCl] 300 mg capsule 300 mg PO TID Qty: 20 0RF No Action sertraline [Zoloft] 100 mg Tablet 100 mg PO DAILY valacyclovir [Valtrex] 500 mg Tablet 500 mg PO DAILY Follow-up/Referrals: UNKNOWN,DOCTOR [Primary Care Provider]
[2025-03-04 02:39] LABS: Influenza A QL RT-PCR Negative (Negative); Influenza B QL RT-PCR Negative (Negative); RSV RNA, RT-PCR Negative (Negative); SARS-CoV-2 RNA PCR Negative (Negative)
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
--- OUTSIDE RECORDS SUMMARY | 2025-03-04 03:05 | XMS_ITS | Clinical Summary ---
Author Organization [facility] Address [address] [place] [address] Phone Care Team Providers Care Structural Fitter Name Role Phone Provider, None Primary Care Provider Unavailabl e Allergies No known active allergies Medications HYDROcodone-elvis taminophen (NORCO) 5-325 MG Tablet Take 1-2 Tabs by mouth every 4 hours as needed for Pain. 20 Tab 08/28/2017 Active ketorolac (TORADOL) 10 MG Tablet Take 1 Tab by mouth every 6 hours as needed for Pain. 20 Tab 10/19/2017 Active traMADol (ULTRAM) 50 MG Tablet Take 1-2 Tabs by mouth every 6 hours as needed for Moderate or more severe pain. 20 Tab 02/22/2020 Active Active Problems Problem Noted Date Diagnosed Date DANIEL (generalized anxiety disorder) 02/23/2025 PTSD (post-traumatic stress disorder) 02/23/2025 Encounters Date Type Department Care Team Description 02/23/2025 4:30 PM CDT [facility] [address] [place] [address] Lenka Palmer [facility] DANIEL (generalized anxiety disorder) (Primary Dx); PTSD (post-traumatic stress disorder) Discharge Disposition: Discharged to home or Selfcare 02/23/2025 Travel from Last 3 Months Family History Medical History Relation Name Comments No Known Problems Father Pratik (50) Anxiety disorder Mother Liza (51) Anxiety disorder Sister 1 Lani (31) Depression Sister 1 Lani (31) Anxiety disorder Sister 2 Darling (21) Relation Name Status Comments Father Pratik (50) Alive Mother Liza (51) Alive Sister 1 Lani (31) Alive Sister 2 Darling (21) Alive Social History Tobacco Use Types Packs/Day Years Used Date Smoking Tobacco: Former Cigarettes Smokeless Tobacco: Current Tobacco Cessation:Ready to Q uit: Not Asked; Counseling Given: Not Answered Alcohol Use Standard Drinks/Week Comments Not Currently 0 (1 standard drink = 0.6 oz pur e alcohol) last drank Mar 2025 Sexually Active Control Partners Comments Yes Male Comments No Sex and Gender Information Value Date Recorded Sex Assigned at Not on file Legal Sex Female 11:25 PM CDT Gender Identity Not on file Sexual Orientation Not on file Last Filed Vital Signs Vital Sign Reading Time Taken Comments Blood Pressure 122/84 02/24/2020 4:03 PM CDT Pulse 125 02/24/2020 4:03 PM CDT Temperature 36.6 C (97.8 F) 02/24/2020 4:03 PM CDT Respiratory Rate 20 02/24/2020 4:03 PM CDT Oxygen Saturation 100% 02/22/2020 5:58 AM CDT Inhaled Oxygen Concentration - - Weight 49.9 kg (110 lb) 02/24/2020 4:03 PM CDT Height 154.9 cm (5' 1) 02/24/2020 4:03 PM CDT Body Mass Index 20.78 02/24/2020 4:03 PM CDT Plan of Treatment Upcoming Encounters Date Type Department Care Team (Late st Contact Info) Description 03/11/2025 3:45 PM CDT Outpatient Clinic Visit [facility] [address] [place] [address] Lenka Palmer [facility] [address] [place] [address] Health Maintenance Due Date Last Done Comments Hepatitis C Virus (HCV) Screening 1996 Pap Smear 2017 Human Papillomavirus (HPV) Immunization (1 - 3-dose SCDM series) 2023 Influenza Immunization (#1) 2025 06/09/2003 SARS-COV-2 Immunization (2023- season) 2025 Respiratory Syncytial Virus (RSV) Immunization (Adult) (1 - 1-dose 75+ series) 2071 Hepatitis B Immunization Completed 997, 1996, 1996 DTaP/Tdap/Td Immunization Discontinued 2020, 02/17/2002, 02/14/1998, Additional history exists TdaP Immunization Completed 11/19/2020 Meningococcal Immunization (ACWY) Aged Out No longer eligible based on patient's age to complete this topic Pneumococcal Immunization Combined Aged Out No longer eligible based on patient's age to complete this topic Rotavirus Immunization Aged Out No lo nger eligible based on patient's age to complete this topic Goals Goal Patient Goal Type Associated Problems Recent Progress Patient-Stated? Author ANXIETY Anxiety Yes Lenka Palmer, [facility] Note: I want to regulate emotions Process trauma Goal/Objective: Increase coping techniques. Anticipated Time Frame for Goal Completion: 6 months Goal Reviewed with: patient Readiness to change: Ready to change Department associated with goal: [facility] Steps to achieve goal: will attend counseling/psychotherapy sessions at least once monthly, at least 6 sessions, utilizing individual and/or group sessions to express thoughts and feelings. to identify, verbalize and process at least three contributing factors/triggers to anxiety and depression. to identify and verbalize at least three actions/skills to prevent and/or cope with anxiety and depression. to put into action, at least one time weekly, for one month, an action/skill to prevent and or cope with anxiety and depression. Insurance [facility] Care Teams Structural Fitter Relationship Specialty Start Date End Date Provider, None [place] PCP - General 08/27/17
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
--- OUTSIDE RECORDS SUMMARY | 2025-03-04 03:05 | XMS_ITS | Patient Health Record ---
Author Organization [facility] Address [address] [place] [address] Care Team Providers Care Home Decorator Name Role Phone Josselin Gibson Primary Care Provider Allergies No Known Allergies Results Component Value Reference Range Notes QuantiFERON-TB Gold Plus ([id number]) Reviewed date:06/08/2024 03:23:20 PM Interpretation: Performing Lab[facility], [address] [facility], Phone - [phone], Director - [facility] Notes/Report: QuantiFERON Incubation Incubation performed. QuantiFERON-TB Gold Plus Negative Negative No response to M tuberculosis antigens detected. Infection with M tuberculosis is unlikely, but high risk individuals should be considered for additional testing (ATS/IDSA/CDC Clinical Practice Guidelines, 2017). The reference range is an Antigen minus Nil result of <0.35 IU/mL. Chemiluminescence immunoassay methodology QuantiFERON Criteria QuantiFERON-TB Gold Plus is a qualitative indirect test for M tuberculosis infection (including disease) and is intended for use in conjunction with risk assessment, radiography, and other medical and diagnostic evaluations. The QuantiFERON-TB Gold Plus result is determined by subtracting the Nil value from either TB antigen (Ag) value. The Mitogen tube serves as a control for the test. QuantiFERON TB1 Ag Value 0.00 QuantiFERON TB2 Ag Value 0.00 QuantiFERON Nil Value 0.00 QuantiFERON Mitogen Value >10.00 Reason For Referral No Information Medications Medication SIG (Take, Route, Fr equency, Duration) Notes Start Date End Date Status Sertraline HCl 25 MG 1 tablet Orally antoinette ly; Duration: 14 days Active Social History Tobacco Use: Social History Observation Description Date Details (start date - stop date) Unknown Sex Assigned At : Social History Observation Description Sex Assigned At Female Dont use, Tobacco Use/Smoking Question Answer Notes Are you a former smoker How long has it been since you last smoked? 6-12 months Tobacco Control (Standard) Question Answer Notes Additional Findings: Tobacco non-user Ex-cigaret te smoker Tobacco use: Uses tobacco in other forms Additional Findings: Tobacco user e-cigarette Problems Problem Type SNOMED Code ICD Code Onset Dates Problem Status W/U Status Risk Notes Problem Generalized anxiety disorder (87665460) Generalized anxiety disorder (F41.1) Active confirmed Problem Depressed bipolar I disorder (40745803) Bipolar depression (F31.30) Active confirmed Vital Signs Heart Rate 71 /min 09/08/2024 Respiratory Rate 16 /min 09/08/2024 Blood pressure diastolic 62 mm Hg 09/08/2024 Oximetry 97 % 09/08/2024 Height 61 in 09/08/2024 Blood pressure systolic 98 mm Hg 09/08/2024 Weight 170.8 lbs 09/08/2024 BMI 32.27 kg/m2 09/08/2024 Encounters Encounter Location Date Provider Diagnosis [address] [place] [address] 04/16/2024 Josselin Gibson Generalized anxiety disorder F41.1 and Bipolar depression F31.30 [facility] [address] [place] [address] [place] [address] 09/08/2024 Josselin Gibson Generalized anxiety disorder F41.1 and Bipolar depression F31.[address] [place] [address] 01/20/2025 Josselin Gibson Generalized anxiety disorder F41.1 and Bipolar depression F31.[address] [place] [address] 07/30/2024 Josselin Gibson Assessments Encounter Date Diagnosis (ICD Code) Assessment Notes Treatment Notes Treatment Clinical Notes Section Notes 04/16/2024 Generalized anxiety disorder (ICD-10 - F41.1) continue zoloft. reports doing well at this time. 01/20/2025 Generalized anxiety disorder (ICD-10 - F41.1) Continue coping mechanisms 09/08/2024 Generalized anxiety disorder (ICD-10 - F41.1) continue zoloft. reports doing well at this time. 09/08/2024 Bipolar depression (ICD-10 - F31.30) Client reports doing well with Zoloft- continue at this dose as helps more with irritability, client v/u and agreement to the plan. 01/20/2025 Bipolar depression (ICD-10 - F31.30) States wanting to wean down medication and assess mood. Discussed slow wean and call with concerns/questions. 04/16/2024 Bipolar depression (ICD-10 - F31.30) Client reports doing well with Zoloft- continue at this dose as helps more with irritability, client v/u and agreement to the plan. 04/16/2024 Other Reasons, potential benefits, potential risks, interactions and side effects of all medications were discussed. The Patient/Guardian asked appropriate questions, appeared to understand the answers, and decided to accept the treatment and continue being followed. Alternatives and expected course without treatment were reviewed. The Patient/Guardian is aware of the need to contact the office or return for an earlier appointment if any problems or concerns arise. May also contact the 24-hour crisis hotline ([facility]), refer to the closest emergency room or call 911 if new symptoms arise of existing symptoms worsen. The Patient/Guardian is aware that this would apply to symptoms like: suicidal ideation, homicidal ideation, high risk behaviors, manic symptoms, psychotic symptoms, physical symptoms, or any other symptoms that may be dangerous to self or others. Greater than 50% of time spent on coordination and counseling where psychopharmacology as well as psychotherapeutic interventions were discussed along with review of treatments in the past. Education provided concerning need for adequate hydration. Patient/Guardian verbalized understanding of education, treatment plan and follow up. This session was completed telephonically with client/parental/guard aleksandra consent: Unable to determine movement status, assess appearance, affect, AIMS, or vital signs. 09/08/2024 Other Reasons, potential benefits, potential risks, interactions and side effects of all medications were discussed. The Patient/Guardian asked appropriate questions, appeared to understand the answers, and decided to accept the treatment and continue being followed. Alternatives and expected course without treatment were reviewed. The Patient/Guardian is aware of the need to contact the office or return for an earlier appointment if any problems or concerns arise. May also contact the 24-hour crisis hotline ([facility]), refer to the closest emergency room or call 911 if new symptoms arise of existing symptoms worsen. The Patient/Guardian is aware that this would apply to symptoms like: suicidal ideation, homicidal ideation, high risk behaviors, manic symptoms, psychotic symptoms, physical symptoms, or any other symptoms that may be dangerous to self or others. Greater than 50% of time spent on coordination and counseling where psychopharmacology as well as psychotherapeutic interventions were discussed along with review of treatments in the past. Education provided concerning need for adequate hydration. Patient/Guardian verbalized understanding of education, treatment plan and follow up. 01/20/2025 Other Reasons, potential benefits, potential risks, interactions and side effects of all medications were discussed. The Patient/Guardian asked appropriate questions, appeared to understand the answers, and decided to accept the treatment and continue being followed. Alternatives and expected course without treatment were reviewed. The Patient/Guardian is aware of the need to contact the office or return for an earlier appointment if any problems or concerns arise. May also contact the 24-hour crisis hotline ([facility]), refer to the closest emergency room or call 911 if new symptoms arise of existing symptoms worsen. The Patient/Guardian is aware that this would apply to symptoms like: suicidal ideation, homicidal ideation, high risk behaviors, manic symptoms, psychotic symptoms, physical symptoms, or any other symptoms that may be dangerous to self or others. Greater than 50% of time spent on coordination and counseling where psychopharmacology as well as psychotherapeutic interventions were discussed along with review of treatments in the past. Education provided concerning need for adequate hydration. Patient/Guardian verbalized understanding of education, treatment plan and follow up. This session was completed telephonically with client/parental/guard aleksandra consent: Unable to determine movement status, assess appearance, affect, AIMS, or vital signs. Plan Of Treatment Future Test Test Name Order Date Test, Urine 01/22/2022 Insurance Providers Payer Name Payer Address Payer Phone Subscriber Number Group Number Insured Name Patient Relationship to Insured Coverage Start Date Coverage End Date [facility] [address] [place] [address] [id number] Sima Sol Self - patient is the insured [address] [place] [address] [id number] Sima Sol Self - patient is the insured 3 5 [employer] [address] [place] [address] [id number] Sima Sol Self - patient is the insured 2 2 [facility] Claims Department [address] [place] [address] [id number] Sima Sol Self - patient is the insured 3 3 [facility] Claims Department [address] [place] [address] [id number] Sima Sol Self - patient is the insured 3 3 [employer] [address] [place] [address] [id number] Sima Sol Self - patient is the insured 3 5 Medical (General) History Surgical History Surgery Date(Month/Year) OVARIAN CYSTECTOMY 2021 Hospitalization History Reason Date(Month/Year)
[2025-03-04] MEDS: ACETAMINOPHEN 500 MG TABLET 1000 MG PO (03:12)
[2025-03-04] MEDS: CLINDAMYCIN HCL 150 MG CAP 300 MG PO (03:12)
== END 2025-03-04 03:20 | disposition home or self-care (01) ==
LOC: ANHED 03:03
PROVIDERS: Emergency Provider Student in an Organized Health Care Education/Training Program
DX: K04.01 Reversible pulpitis (principal); B34.9 Viral infection, unspecified; F17.290 Nicotine dependence, other tobacco product, uncomplicated; Z20.822 Contact with and (suspected) exposure to COVID-19
CPT/HCPCS: 71046; 87637; 99283; A9270